=== PATIENT | female | born 1945 | race Caucasian/White ===

== ENCOUNTER 2020-03-18 16:52 | Inpatient (IN) | payer OTHER ==
[~2020-03-18] VITALS: Ht 154.9 cm; Wt 83.9 kg
[2020-03-18 18:28] LABS: RED BLOOD COUNT 4.23 M/UL (4.00-5.10); WHITE BLOOD COUNT 5.1 K/UL (4.5-11.0)
[2020-03-18 18:51] LABS: BUN/CREATININE RATIO 25 (0-10)
[2020-03-19] MEDS ORDERED: NORVASC10 MG PO (00:19)
[2020-03-19] MEDS ORDERED: CYMBALTA60 MG PO (00:19)
[2020-03-19] MEDS ORDERED: LEVOTHYROXINE88 MC1 PO (00:20)
[2020-03-19] MEDS ORDERED: LASIX TAB 20 MG20 MG PO (00:20)
[2020-03-19] MEDS ORDERED: ROPINIROLE HCL1 MG PO (00:21)
[2020-03-19] MEDS ORDERED: ZESTRIL 40 MG T40 MG PO (00:21)
[2020-03-19] MEDS ORDERED: LOPRESSOR 25 MG25 MG PO (00:22)
[2020-03-19 04:56] LABS: HEMOGLOBIN 13.1 gm/dl (12.3-15.3); RED BLOOD COUNT 4.3 M/UL (4.00-5.10); WHITE BLOOD COUNT 4.4 K/UL (4.5-11.0)
[2020-03-19 05:16] LABS: BUN/CREATININE RATIO 20 (0-10)
[2020-03-20 05:37] LABS: BUN/CREATININE RATIO 35 (0-10)
[2020-03-21 06:20] LABS: BUN/CREATININE RATIO 37 (0-10)
[2020-03-22 07:30] LABS: BUN/CREATININE RATIO 34 (0-10)
--- NOTE | 2020-03-22 14:17 | NUR ---
PER NURSING, PATIENT SAT 87% ON ROOM AIR
[2020-03-25] MEDS ORDERED: MEDROL DOSEPAK 24 MG PO (14:47)
[2020-03-25] MEDS ORDERED: ZOFRAN4 MG PO (14:48)
== END 2020-03-26 15:19 | disposition home or self-care (01) | DRG 177 ==
LOC: ER1 16:52 → CDU 21:43 → MED SURG 4 21:43 → ZEROF 03-19 10:58 → CDU 03-19 10:58 → MED SURG 4 03-19 19:50
PROVIDERS: Internal Medicine; Physician Assistant; ADMIT Internal Medicine
PROC: XW13325 Transfusion of Convalescent Plasma (Nonautologous) into Peripheral Vein, Percutaneous Approach, New Technology Group 5 (ICD-10-PCS; 2020-03-18)
PROC: 8E0ZXY6 Isolation (ICD-10-PCS; 2020-03-18)
PROC: XW033E5 Introduction of Remdesivir Anti-infective into Peripheral Vein, Percutaneous Approach, New Technology Group 5 (ICD-10-PCS; principal; 2020-03-19)
DX: U07.1 COVID-19 (principal); J12.82 Pneumonia due to coronavirus disease 2019; J96.01 Acute respiratory failure with hypoxia; M19.90 Unspecified osteoarthritis, unspecified site; I10 Essential (primary) hypertension; K59.00 Constipation, unspecified
CPT/HCPCS: 36415; 36600; 71045; 80048; 80053; 81001; 82550; 82553; 82803; 83874; 84484; 85025; 86900; 86901; 86927; 90471; 93005; 94640; 94760; 96365; 96366; 96367; 96372; 96375; 96376; 97116; 97162; 97165; 99285; J1100; J1650; J2405; J7030; Q9967; U0002